=== PATIENT | male | born 1930 | race Caucasian/White ===

== ENCOUNTER 2016-11-25 12:43 | Inpatient (IN) | payer OTHER, MEDICARE ==
[~2016-11-25] VITALS: Ht 177.8 cm; Wt 61.0 kg
[~2016-11-25 12:43] MED LIST: AGGR20025 PO; FURO20 PO; KLOR20TA6 PO; LISI-357 PO; METO25 PO
[2016-11-25 12:45] VITALS: BP 153/70; PULSE 59; RESP 12; TEMP 101.4; O2SAT 88
[2016-11-25 13:06] VITALS: BP 153/70; PULSE 59; RESP 18; TEMP 101.4; O2SAT 94
--- NOTE | 2016-11-25 13:39 | PD ---
HPI Chief Complaint: Fever Time Seen by Provider: 13:34 Travel History International Travel<30 days: No Contact w/Intl Traveler<30days: No Traveled to known affect area: No History of Present Illness HPI 85-year-old male presents to the emergency department for evaluation of cough and congestion since , 5 days ago. His at bedside states that he had a low-grade fever on Thursday, but started to run higher fevers yesterday. He also became weak yesterday and currently complains of generalized weakness. The patient denies any headache. No chest pain. Denies any shortness of breath. No abdominal pain. No nausea or vomiting. Reports intermittent pain from abdominal hernia, but denies any pain at this time. The patient does report a history of pneumonia in the past. According to the , he was seen at the [facility] today was sent to the emergency department for pneumonia and fever. Patient has a PMH of CHF, status post pacemaker placement, hypertension, hyperlipidemia, CAD status post CABG 5 vessels. PFSH Past Medical History Anemia: Yes Blood Disorders: No Heart Rhythm Problems: No Cancer: Yes (HX SKIN) Cardiovascular Problems: Yes (cad) High Cholesterol: Yes Chemotherapy: No Chest Pain: Yes Congestive Heart Failure: Yes Cerebrovascular Accident: Yes Coronary Artery Disease: Yes Diminished Hearing: No (R AND LEFT EAR) Endocrine: No Glaucoma: No Genitourinary: Yes (BPH) Hypertension: Yes Immune Disorder: No Musculoskeletal: No Neurologic: Yes (head injury) Psychiatric: No Reproductive: No Respiratory: Yes (pneumonia) Myocardial Infarction: Yes Radiation Therapy: No Triglycerides - High: Yes Past Surgical History Abdominal Surgery: No AICD: No Arteriovenous Shunt: No Cardiac Surgery: Yes (CABG 5 GRAFTS) Coronary Artery Bypass Graft: Yes (X5 BYPASS 1989 W/STENTS) Ear Surgery: No Endocrine Surgery: No Eye Surgery: No Genitourinary Surgery: Yes (TURP FOR BPH 03/15) Gynecologic Surgery: No Insulin Pump: No Joint Replacement: No Oral Surgery: No Pacemaker: Yes (MARCH 2004) Thoracic Surgery: Yes Other Surgery: Yes Social History Alcohol Use: No Tobacco Use: No Substance Use: No Allergies-Medications (Allergen,Severity, Reaction): Coded Allergies: MRI PRECAUTION (Verified Allergy, Mild, 11/25/16) Plavix (Verified Allergy, Mild, DIARRHEA, 11/25/16) Reported Meds & Prescriptions Reported Meds & Active Scripts Active Reported Aspirin 81 Mg Chew 81 Mg CHEW DAILY Ranitidine (Ranitidine HCl) 150 Mg Tab 150 Mg PO DAILY Metoprolol Tartrate 25 Mg Tab 12.5 Mg PO BID Potassium Chloride ER (Potassium Chloride) 20 Meq Tab 20 Meq PO DAILY Furosemide 20 Mg Tab 20 Mg PO DAILY Review of Systems Except as stated in HPI: all other systems reviewed are Neg Physical Exam Narrative GENERAL: Well-developed well-nourished elderly male patient, fever of 101.4. SKIN: Warm and dry. HEAD: Normocephalic. Atraumatic. EYES: No scleral icterus. No injection or drainage. NECK: Supple, trachea midline. No JVD or lymphadenopathy. CARDIOVASCULAR: Regular rate and rhythm. Systolic murmur noted. RESPIRATORY: Breath sounds equal bilaterally. No accessory muscle use. Lungs sounds are diminished throughout. Cough is noted. GASTROINTESTINAL: Abdomen soft, non-tender, nondistended. MUSCULOSKELETAL: No cyanosis, or edema. BACK: Nontender without obvious deformity. No CVA tenderness. Data Data Last Documented VS Vital Signs Date Time Temp Pulse Resp B/P Pulse Ox O2 Delivery O2 Flow Rate FiO2 11/25/16 16:14 99.2 59 18 138/64 99 Nasal Cannula 2 Orders Electrocardiogram (11/25/16 13:32) Complete Blood Count With Diff (11/25/16 13:32) Lactic Acid Sepsis Protocol (11/25/16 13:32) Influenzae A/B Antigen (11/25/16 13:32) Urinalysis - C+S If Indicated (11/25/16 13:32) Blood Culture (11/25/16 13:32) Chest, Single Ap (11/25/16 13:32) Sodium Chloride 0.9% Flush (Ns Flush) (11/25/16 13:45) Comprehensive Metabolic Panel (11/25/16 13:32) Acetaminophen (Tylenol) (11/25/16 13:45) Troponin I (11/25/16 13:39) Creatine Kinase (Cpk) (11/25/16 13:39) Pneumococcal Urinary Antigen (11/25/16 14:14) Legionella Urinary Antigen (11/25/16 14:14) Ecg Monitoring (11/25/16 14:14) Iv Access Insert/Monitor (11/25/16 14:14) Oximetry (11/25/16 14:14) Oxygen Administration (11/25/16 14:14) B-Type Natriuretic Peptide (11/25/16 14:30) Vancomycin Inj (Vancomycin Inj) (11/25/16 14:27) Cefepime Inj (Maxipime Inj) (11/25/16 14:27) Cath For Specimen (11/25/16 14:51) Diet Heart Healthy (11/25/16 Dinner) Vital Signs (Adult) RHODA.Q4H (11/25/16 16:42) Resp Oxygen Get C Titrat 1-4 L (11/25/16 ) Ceftriaxone Inj (Rocephin Inj) (11/25/16 21:00) Azithromycin Inj (Zithromax Inj) (11/25/16 17:00) Acetaminophen (Tylenol) (11/25/16 16:45) Ondansetron Inj (Zofran Inj) (11/25/16 16:45) Sodium Chlorid 0.9% 500 Ml Inj (Ns 500 M (11/25/16 16:45) Complete Blood Count With Diff (11/26/16 06:00) Basic Metabolic Panel (Bmp) (11/26/16 06:00) Aspirin Chew (Aspirin Chew) (11/26/16 09:00) Metoprolol Tartrate (Lopressor) (11/25/16 21:00) Consult Pt Eval & Treat (11/25/16 16:46) Enoxaparin Inj (Lovenox Inj) (11/26/16 09:00) Pill Splitter (Pill Splitter) (11/25/16 21:00) Albuterol-Ipratropium Neb (Duoneb Neb) (11/25/16 17:15) Famotidine (Pepcid) (11/26/16 09:00) Urinary Catheter Insert/Apply (11/25/16 17:28) Admit Order (Ed Use Only) (11/25/16 18:00) Labs Laboratory Tests Test 11/25/16 11/25/16 13:50 15:30 White Blood Count 5.1 TH/MM3 Red Blood Count 3.83 MIL/MM3 Hemoglobin 12.6 GM/DL Hematocrit 37.4 % Mean Corpuscular Volume 97.5 FL Mean Corpuscular Hemoglobin 32.9 PG Mean Corpuscular Hemoglobin 33.7 % Concent Red Cell Distribution Width 13.9 % Platelet Count 176 TH/MM3 Mean Platelet Volume 9.2 FL Neutrophils (%) (Auto) 75.7 % Lymphocytes (%) (Auto) 10.2 % Monocytes (%) (Auto) 13.2 % Eosinophils (%) (Auto) 0.3 % Basophils (%) (Auto) 0.6 % Neutrophils # (Auto) 3.8 TH/MM3 Lymphocytes # (Auto) 0.5 TH/MM3 Monocytes # (Auto) 0.7 TH/MM3 Eosinophils # (Auto) 0.0 TH/MM3 Basophils # (Auto) 0.0 TH/MM3 CBC Comment AUTO DIFF Differential Comment AUTO DIFF CONFIRMED Platelet Estimate NORMAL Platelet Morphology Comment NORMAL Ovalocytes 1+ Sodium Level 134 MEQ/L Potassium Level 5.3 MEQ/L Chloride Level 100 MEQ/L Carbon Dioxide Level 26.7 MEQ/L Anion Gap 7 MEQ/L Blood Urea Nitrogen 23 MG/DL Creatinine 1.50 MG/DL Estimat Glomerular Filtration 44 ML/MIN Rate Random Glucose 107 MG/DL Lactic Acid Level 1.6 mmol/L Calcium Level 9.1 MG/DL Total Bilirubin 0.7 MG/DL Aspartate Amino Transf 51 U/L (AST/SGOT) Alanine Aminotransferase 17 U/L (ALT/SGPT) Alkaline Phosphatase 103 U/L Total Protein 8.9 GM/DL Albumin 3.6 GM/DL Urine Color YELLOW Urine Turbidity CLEAR Urine pH 5.5 Urine Specific [place] 1.018 Urine Protein TRACE mg/dL Urine Glucose (UA) NEG mg/dL Urine Ketones NEG mg/dL Urine Occult Blood NEG Urine Nitrite NEG Urine Bilirubin NEG Urine Urobilinogen LESS THAN 2.0 MG/DL Urine Leukocyte Esterase NEG Urine RBC LESS THAN 1 /hpf Urine WBC 1 /hpf Urine Squamous Epithelial <1 /hpf Cells Urine Hyaline Casts 1 /lpf Urine Mucus FEW /lpf Microscopic Urinalysis Comment CULT NOT INDICATED B-Type Natriuretic Peptide 823 PG/ML MDM Medical Decision Making Medical Screen Exam Complete: Yes Emergency Medical Condition: Yes Medical Record Reviewed: Yes Differential Diagnosis Pneumonia versus sepsis versus UTI versus influenza Narrative Course 85-year-old male presents to the emergency department for evaluation of fever, cough, congestion, generalized weakness that has been worsening since . Patient is noted to be febrile to temperature of 101.4. His oxygen saturation initially in triage was 88% on room air. Patient is placed in triage room and is placed on 3 L O2 nasal cannula. CBC, CMP, CK, troponin, lactic acid, blood cultures 2 are ordered and pending. EKG is ordered and pending. Chest x-ray is ordered and pending. Workup is initiated in triage. Once a medical bed becomes available, patient will be transferred and care assumed by that provider. Velma Mata Nov 25, 2016 13:39
[2016-11-25] MEDS ORDERED: ACETAMINOPHEN 325 MG TAB PO ONE (13:45)
[2016-11-25 14:21] LABS: AUTOMATED NEUTROPHIL # 3.8 TH/MM3 (1.8-7.7); BASOPHIL % 0.6 % (0.0-2.0); EOSINOPHIL % 0.3 % (0.0-4.0); HEMATOCRIT 37.4 % (39.0-51.0); LYMPH % 10.2 % (9.0-44.0); LYMPHOCYTE # 0.5 TH/MM3 (1.0-4.8); MEAN CELL VOLUME 97.5 FL (80.0-100.0); MEAN CORPUSCULAR HEMOGLOBIN 32.9 PG (27.0-34.0); MEAN CORPUSCULAR HGB CONC 33.7 % (32.0-36.0); MONO % 13.2 % (0.0-8.0); NEUT % 75.7 % (16.0-70.0); PLATELET COUNT 176 TH/MM3 (150-450); RED BLOOD COUNT 3.83 MIL/MM3 (4.50-5.90); RED CELL DISTRIBUTION WIDTH 13.9 % (11.6-17.2); WHITE BLOOD COUNT 5.1 TH/MM3 (4.0-11.0)
--- NOTE | 2016-11-25 14:24 | RADRPT ---
EXAM DATE/TIME: 11/25/2016 13:54 [facility] COMPARISON: CHEST SINGLE AP, November 23, 2014, 6:21. INDICATIONS : Fever, short of breath MEDICAL HISTORY : Cardiovascular disease. SURGICAL HISTORY : Pacemaker. ENCOUNTER: Initial ACUITY: 1 day PAIN SCORE: 0/10 LOCATION: Bilateral chest FINDINGS: A single AP portable erect view of the chest was obtained and demonstrates the patient is status post median sternotomy. A left subclavian AV sequential transvenous pacer remains in place. There are no confluent infiltrates or effusions. The heart size remains mildly enlarged. The bony thorax is otherw ise unremarkable. CONCLUSION: Re: megaly with no acute cardiac pulmonary disease. There is no evidence of pneumonia . Jaden Aguayo MD on November 25, 2016 at 14:07 Board Certified Radiologist. This report was verified electronically.
[2016-11-25] MEDS ORDERED: VANCOMYCIN INJ 1,000 MG in SODIUM CHLOR 0.9% 250 ML INJ 250 ML IV STA (14:27)
[2016-11-25] MEDS ORDERED: CEFEPIME INJ 2,000 MG in SODIUM CHLORIDE 0.9% INJ 100 ML IV STA (14:27)
[2016-11-25 14:30] LABS: HEMO FLAGS AUTO DIFF
[2016-11-25] MEDS ORDERED: ASPI81CH CHEW (14:38)
[2016-11-25] MEDS ORDERED: FURO20TA PO (14:38)
[2016-11-25] MEDS ORDERED: POTA-163 PO (14:38)
[2016-11-25] MEDS ORDERED: METO25TA3 PO (14:38)
[2016-11-25] MEDS ORDERED: RANI150T PO (14:38)
--- NOTE | 2016-11-25 14:39 | PD ---
HPI Chief Complaint: Fever Time Seen by Provider: 14:32 Travel History International Travel<30 days: No Contact w/Intl Traveler<30days: No Traveled to known affect area: No History of Present Illness HPI Patient is an 85-year-old male who was sent by the MD to the emergency department for evaluation of fevers and possible pneumonia. Per 's report patient started to feel bad on of last week. She states that he had been sleeping more. Patient denies any nausea, vomiting, diarrhea. states this morning he was weak to the point where he needed help changing positions and ambulating. states that the thermometer wasn't working so she is unsure if he had a fever at home. Patient is currently denying any complaints stating that he "feels good". Patient's past medical history includes hypertension, congestive for failure, hyperlipidemia, CVA, CAD. Patient has had a pacemaker placed, 5 vessel CABG, and cardiac stents. PFSH Past Medical History Anemia: Yes Blood Disorders: No Heart Rhythm Problems: No Cancer: Yes (HX SKIN) High Cholesterol: Yes Chemotherapy: No Chest Pain: Yes Congestive Heart Failure: Yes Cerebrovascular Accident: Yes Coronary Artery Disease: Yes Diminished Hearing: No (R AND LEFT EAR) Endocrine: No Glaucoma: No Genitourinary: Yes (BPH) Hiatal Hernia: Yes Hypertension: Yes Immune Disorder: No Musculoskeletal: No Neurologic: Yes (head injury) Psychiatric: No Reproductive: No Respiratory: Yes (pneumonia) Myocardial Infarction: Yes Radiation Therapy: No Triglycerides - High: Yes Past Surgical History Abdominal Surgery: No AICD: No Arteriovenous Shunt: No Coronary Artery Bypass Graft: Yes (X5 BYPASS 1989 W/STENTS) Ear Surgery: No Endocrine Surgery: No Eye Surgery: No Genitourinary Surgery: Yes (TURP FOR BPH 03/15) Gynecologic Surgery: No Insulin Pump: No Joint Replacement: No Oral Surgery: No Pacemaker: Yes (MARCH 2004) Other Surgery: Yes Social History Alcohol Use: No Tobacco Use: No Substance Use: No Allergies-Medications (Allergen,Severity, Reaction): Coded Allergies: MRI PRECAUTION (Verified Allergy, Mild, 11/25/16) Plavix (Verified Allergy, Mild, DIARRHEA, 11/25/16) Reported Meds & Prescriptions Reported Meds & Active Scripts Active Reported Aspirin 81 Mg Chew 81 Mg CHEW DAILY Ranitidine (Ranitidine HCl) 150 Mg Tab 150 Mg PO DAILY Metoprolol Tartrate 25 Mg Tab 12.5 Mg PO BID Potassium Chloride ER (Potassium Chloride) 20 Meq Tab 20 Meq PO DAILY Furosemide 20 Mg Tab 20 Mg PO DAILY Review of Systems Except as stated in HPI: all other systems reviewed are Neg General / Constitutional: Positive: Fever, Chills HENT: No: Headaches Cardiovascular: No: Chest Pain or Discomfort Respiratory: Positive: Shortness of Breath Gastrointestinal: No: Nausea, Vomiting, Abdominal Pain Musculoskeletal: No: Myalgias Neurologic: Positive: Weakness, No: Focal Abnormalities, Change in Mentation Physical Exam Narrative GENERAL: Thin, well-developed, alert elderly male. Resting comfortably in no acute distress. Patient is hard of hearing. SKIN: Warm and dry. HEAD: Atraumatic. Normocephalic. EYES: Pupils equal and round. No scleral icterus. No injection or drainage. ENT: No nasal bleeding or discharge. Mucous membranes pink and moist. NECK: Trachea midline. No JVD. CARDIOVASCULAR: Regular rate and rhythm. 2/6 systolic murmur noted, no peripheral edema noted. RESPIRATORY: No accessory muscle use. Expiratory wheezing noted in left lower lobe. No increased work of breathing noted. GASTROINTESTINAL: Abdomen soft, non-tender, nondistended. Hepatic and splenic margins not palpable. MUSCULOSKELETAL: No obvious deformities. No clubbing. No cyanosis. No edema. NEUROLOGICAL: Awake and alert. No obvious cranial nerve deficits. Motor grossly within normal limits. Normal speech. PSYCHIATRIC: Appropriate mood and affect; insight and judgment normal. Data Data Last Documented VS Vital Signs Date Time Temp Pulse Resp B/P Pulse Ox O2 Delivery O2 Flow Rate FiO2 11/25/16 14:30 98 Nasal Cannula 2 11/25/16 13:06 101.4 59 18 153/70 Orders Electrocardiogram (11/25/16 13:32) Complete Blood Count With Diff (11/25/16 13:32) Lactic Acid Sepsis Protocol (11/25/16 13:32) Influenzae A/B Antigen (11/25/16 13:32) Urinalysis - C+S If Indicated (11/25/16 13:32) Blood Culture (11/25/16 13:32) Chest, Single Ap (11/25/16 13:32) Sodium Chloride 0.9% Flush (Ns Flush) (11/25/16 13:45) Comprehensive Metabolic Panel (11/25/16 13:32) Acetaminophen (Tylenol) (11/25/16 13:45) Troponin I (11/25/16 13:39) Creatine Kinase (Cpk) (11/25/16 13:39) Pneumococcal Urinary Antigen (11/25/16 14:14) Legionella Urinary Antigen (11/25/16 14:14) Ecg Monitoring (11/25/16 14:14) Iv Access Insert/Monitor (11/25/16 14:14) Oximetry (11/25/16 14:14) Oxygen Administration (11/25/16 14:14) B-Type Natriuretic Peptide (11/25/16 14:30) Vancomycin Inj (Vancomycin Inj) (11/25/16 14:27) Cefepime Inj (Maxipime Inj) (11/25/16 14:27) Cath For Specimen (11/25/16 14:51) Labs Laboratory Tests Test 11/25/16 11/25/16 13:50 15:30 White Blood Count 5.1 TH/MM3 Red Blood Count 3.83 MIL/MM3 Hemoglobin 12.6 GM/DL Hematocrit 37.4 % Mean Corpuscular Volume 97.5 FL Mean Corpuscular Hemoglobin 32.9 PG Mean Corpuscular Hemoglobin 33.7 % Concent Red Cell Distribution Width 13.9 % Platelet Count 176 TH/MM3 Mean Platelet Volume 9.2 FL Neutrophils (%) (Auto) 75.7 % Lymphocytes (%) (Auto) 10.2 % Monocytes (%) (Auto) 13.2 % Eosinophils (%) (Auto) 0.3 % Basophils (%) (Auto) 0.6 % Neutrophils # (Auto) 3.8 TH/MM3 Lymphocytes # (Auto) 0.5 TH/MM3 Monocytes # (Auto) 0.7 TH/MM3 Eosinophils # (Auto) 0.0 TH/MM3 Basophils # (Auto) 0.0 TH/MM3 CBC Comment AUTO DIFF Differential Comment AUTO DIFF CONFIRMED Platelet Estimate NORMAL Platelet Morphology Comment NORMAL Ovalocytes 1+ Sodium Level 134 MEQ/L Potassium Level 5.3 MEQ/L Chloride Level 100 MEQ/L Carbon Dioxide Level 26.7 MEQ/L Anion Gap 7 MEQ/L Blood Urea Nitrogen 23 MG/DL Creatinine 1.50 MG/DL Estimat Glomerular Filtration 44 ML/MIN Rate Random Glucose 107 MG/DL Lactic Acid Level 1.6 mmol/L Calcium Level 9.1 MG/DL Total Bilirubin 0.7 MG/DL Aspartate Amino Transf 51 U/L (AST/SGOT) Alanine Aminotransferase 17 U/L (ALT/SGPT) Alkaline Phosphatase 103 U/L Total Protein 8.9 GM/DL Albumin 3.6 GM/DL Urine Color YELLOW Urine Turbidity CLEAR Urine pH 5.5 Urine Specific [place] 1.018 Urine Protein TRACE mg/dL Urine Glucose (UA) NEG mg/dL Urine Ketones NEG mg/dL Urine Occult Blood NEG Urine Nitrite NEG Urine Bilirubin NEG Urine Urobilinogen LESS THAN 2.0 MG/DL Urine Leukocyte Esterase NEG Urine RBC LESS THAN 1 /hpf Urine WBC 1 /hpf Urine Squamous Epithelial <1 /hpf Cells Urine Hyaline Casts 1 /lpf Urine Mucus FEW /lpf Microscopic Urinalysis Comment CULT NOT INDICATED MDM Medical Decision Making Medical Screen Exam Complete: Yes Emergency Medical Condition: Yes Medical Record Reviewed: Yes Interpretation(s) Vital Signs Date Time Temp Pulse Resp B/P Pulse Ox O2 Delivery O2 Flow Rate FiO2 11/25/16 14:30 98 Nasal Cannula 2 11/25/16 13:06 101.4 59 18 153/70 94 11/25/16 12:45 101.4 59 12 153/70 88 Room Air Differential Diagnosis Sepsis versus pneumonia versus viral syndrome versus UTI versus other Narrative Course Patient is an 85-year-old male presenting to the emergency department evaluation fevers and possible pneumonia after being evaluated at the MD clinic. Patient is febrile on arrival with a temp of 101.4. Heart rate is regular 59, blood pressure stable at 159/70. Labs and imaging ordered and pending, acetaminophen given for fever. Blood cultures, urine for Legionella and pneumococcal antigens, urinalysis ordered. Patient will be started on empiric antibiotics. Urinalysis is not indicative of a urinary tract infection Chemistry with elevated BUN and creatinine, elevated potassium at 5.3, lactic acid is normal. CBC slight left shift, no elevated white count at this time. Chest x-ray no acute cardiopulmonary disease, no evidence of pneumonia. Influenza is negative Likely early pneumonia, on exam patient had wheezing and coarse breath sounds in the left lower lobe. However no clear source has been identified for the fever. Patient will be admitted for empiric IV antibiotics. Patient are agreeable to plan. Discussed with my attending physician as well as Dr. Churchill who accepted admission. Sepsis Criteria SIRS Criteria (2 or more): Temp > 100.9 or < 96.8 Diagnosis Primary Impression: Pneumonia Qualified Code: J18.9 - Pneumonia due to infectious organism, unspecified laterality, unspecified part of lung Additional Impressions: Fever Qualified Code: R50.9 - Fever, unspecified fever cause Hypoxia Acute renal insufficiency Admitting Information Admitting Physician Requests: Admit Condition: Stable Linda Walker Nov 25, 2016 14:39
[2016-11-25 14:40] LABS: ALKALINE PHOSPHATASE 103 U/L (45-117); TOTAL BILIRUBIN ADULT 0.7 MG/DL (0.2-1.0)
[2016-11-25 14:47] LABS: ALT (GPT) 17 U/L (12-78); ANION GAP 7 MEQ/L (5-15); AST (GOT) 51 U/L (15-37); BICARBONATE 26.7 MEQ/L (21.0-32.0); BLOOD UREA NITROGEN 23 MG/DL (7-18); CHLORIDE 100 MEQ/L (98-107); GLOMERULAR FILTRATION RATE 44 ML/MIN (>89); SODIUM (NA) 134 MEQ/L (136-145)
[2016-11-25 14:49] LABS: POTASSIUM 5.3 MEQ/L (3.5-5.1)
[2016-11-25 14:53] LABS: OVALOCYTES 1+ (NORMAL); PLATELET ESTIMATE SMEAR NORMAL (NORMAL); PLATELET MORPHOLOGY NORMAL (NORMAL); SCAN/DIFF AUTO DIFF CONFIRMED
[2016-11-25 15:56] LABS: BLOOD, URINE NEG (NEG); COMMENT (UR) CULT NOT INDICATED; CULTURE IF INDICATED CULT NOT INDICATED; GLUCOSE,URINE NEG (NEG); HYALINE CAST, URINE 1 /lpf (RARE); KETONE, URINE NEG (NEG); MUCUS URINE FEW /lpf (OCC); NITRITE,URINE NEG (NEG); PH, URINE 5.5 (5.0-8.5); SQUAMOUS EPITHELIAL CELL URINE <1 /hpf (0-5); URINE COLOR YELLOW (YELLW/STRAW)
[2016-11-25 16:14] VITALS: BP 138/64; PULSE 59; RESP 18; TEMP 99.2; O2SAT 99
[2016-11-25] MEDS ORDERED: SODIUM CHLORID 0.9% 500 ML INJ 500 ML IV ONE (16:45)
[2016-11-25] MEDS ORDERED: ACETAMINOPHEN 325 MG TAB PO PRN (16:45)
[2016-11-25] MEDS ORDERED: ONDANSETRON HCL 4 MG/2 ML VIAL IV PUSH PRN (16:45)
--- NOTE | 2016-11-25 16:53 | HHI.HP ---
[facility] Service [facility] Primary Care Physician [facility] Admission Diagnosis pneumonia Diagnoses: (1) Pneumonia Diagnosis: Principal (2) Hypoxia Diagnosis: Principal Chief Complaint: cough Travel History International Travel<30 Days: No Contact w/Intl Traveler <30 Da: No Traveled to Known Affected Are: No History of Present Illness patient is a 85 y/o male with history of CAD- s/p CABG, hypertension presented to ER with cough. he says that he's been coughing for the past few days. the cough is productive and associated with fever. he denies any sob, chills or night sweats. he was seen by MA earlier today and was advised to come to the hospital for further evaluation. he denies any chest pain, abdominal pain, nausea or vomiting. Review of Systems Constitutional: COMPLAINS OF: Fever, DENIES: Weight loss, Chills, Night Sweats Eyes: DENIES: Blurred vision, Diplopia, Vision loss, Double Vision Ears, nose, mouth, throat: DENIES: Tinnitus, Vertigo, Throat pain, Epistaxis Respiratory: COMPLAINS OF: Cough, Sputum production, DENIES: Apneas, Snoring, Wheezing, Hemoptysis, Shortness of breath Cardiovascular: DENIES: Chest pain, Palpitations, Syncope, Dyspnea on Exertion , PND, Lower Extremity Edema, Orthopnea, Claudication Gastrointestinal: DENIES: Abdominal pain, Black stools, Bloody stools, Constipation, Diarrhea, Nausea, Vomiting, Difficulty Swallowing, Anorexia Genitourinary: DENIES: Urinary frequency, Urgency, Hematuria, Dysuria Musculoskeletal: DENIES: Joint pain, Muscle aches, Stiffness, Joint Swelling Integumentary: DENIES: Rash Neurologic: DENIES: Abnormal gait, Headache, Localized weakness, Paresthesias, Seizures, Speech Problems, Tremor, Poor Balance Psychiatric: DENIES: Anxiety, Confusion, Mood changes, Depression, Hallucinations, Agitation, Suicidal Ideation, Homicidal Ideation, Delusions Past Family Social History Past Medical History CAD hypertension Past Surgical History CABG/ pacemaker insertion Reported Medications Lisinopril 5 mg (Lisinopril) 5 Mg Tab 1 Tab PO DAILY 30 Days Metoprolol Tartrate 25 mg (Metoprolol Tartrate) 25 Mg Tab 12.5 Mg PO Q12 30 Days Lasix 20 Mg Tab (Furosemide) 20 Mg Tab 20 Mg PO DAILY 30 Days K-Dur (Potassium Chloride) 20 Meq Tabcr 20 Meq PO DAILY 30 Days Aggrenox (Dipyridamole/Aspirin) 25 Mg/200 Mg Cap 1 Cap PO BID Allergies: Coded Allergies: MRI PRECAUTION (Verified Allergy, Mild, 11/25/16) Plavix (Verified Allergy, Mild, DIARRHEA, 11/25/16) Active Ordered Medications Current Medications IV Flush (NS Flush) 2 ml UNSCH PRN IVF FLUSH AFTER USING IV ACCESS; Start 11/25 at 13:45 Acetaminophen 650 mg 650 mg ONCE ONCE PO Last administered on 11/25/16 15:06 ; Start 11/25/16 at 13:45; Stop 11/25/16 at 13:46; Status DC Vancomycin HCl 1000 mg/Sodium Chloride 250 ml @ 250 mls/hr ONCE STAT IV Last administered on 11/25/16 15:38; Start 11/25/16 at 14:27; Stop 11/25/16 at 15:26 ; Status DC Cefepime HCl/ Sodium Chloride (Maxipime Inj/NS Inj) 100 ml @ 200 mls/hr ONCE STAT IV ; Start 11/25/16 at 14:27; Stop 11/25/16 at 14:56; Status DC Social History no smoking or drinking. Physical Exam Vital Signs Vital Signs Date Time Temp Pulse Resp B/P Pulse Ox O2 Delivery O2 Flow Rate FiO2 11/25/16 16:14 99.2 59 18 138/64 99 Nasal Cannula 2 11/25/16 14:30 98 Nasal Cannula 2 11/25/16 13:06 101.4 59 18 153/70 94 11/25/16 12:45 101.4 59 12 153/70 88 Room Air Physical Exam GENERAL: This is a well-nourished, well-developed patient, in no apparent distress. SKIN: No rashes, ecchymoses or lesions. Cool and dry. HEAD: Atraumatic. Normocephalic. No temporal or scalp tenderness. EYES: Pupils equal round and reactive. Extraocular motions intact. No scleral icterus. No injection or drainage. ENT: Nose without bleeding, purulent drainage or septal hematoma. Throat without erythema, tonsillar hypertrophy or exudate. Uvula midline. Airway patent. NECK: Trachea midline. No JVD or lymphadenopathy. Supple, nontender, no meningeal signs. CARDIOVASCULAR: Regular rate and rhythm without murmurs, gallops, or rubs. RESPIRATORY: mild basal wheezing GASTROINTESTINAL: Abdomen soft, non-tender, nondistended. No hepato-splenomegaly , or palpable masses. No guarding. MUSCULOSKELETAL: Extremities without clubbing, cyanosis, or edema. No joint tenderness, effusion, or edema noted. No calf tenderness. Negative Homans sign bilaterally. NEUROLOGICAL: Awake and alert. Cranial nerves II through XII intact. Motor and sensory grossly within normal limits. Five out of 5 muscle strength in all muscle groups. Normal speech. Laboratory Laboratory Tests Test 11/25/16 11/25/16 13:50 15:30 White Blood Count 5.1 Red Blood Count 3.83 Hemoglobin 12.6 Hematocrit 37.4 Mean Corpuscular Volume 97.5 Mean Corpuscular Hemoglobin 32.9 Mean Corpuscular Hemoglobin 33.7 Concent Red Cell Distribution Width 13.9 Platelet Count 176 Mean Platelet Volume 9.2 Neutrophils (%) (Auto) 75.7 Lymphocytes (%) (Auto) 10.2 Monocytes (%) (Auto) 13.2 Eosinophils (%) (Auto) 0.3 Basophils (%) (Auto) 0.6 Neutrophils # (Auto) 3.8 Lymphocytes # (Auto) 0.5 Monocytes # (Auto) 0.7 Eosinophils # (Auto) 0.0 Basophils # (Auto) 0.0 CBC Comment AUTO DIFF Differential Comment AUTO DIFF CONFIRMED Platelet Estimate NORMAL Platelet Morphology Comment NORMAL Ovalocytes 1+ Sodium Level 134 Potassium Level 5.3 Chloride Level 100 Carbon Dioxide Level 26.7 Anion Gap 7 Blood Urea Nitrogen 23 Creatinine 1.50 Estimat Glomerular Filtration 44 Rate Random Glucose 107 Lactic Acid Level 1.6 Calcium Level 9.1 Total Bilirubin 0.7 Aspartate Amino Transf 51 (AST/SGOT) Alanine Aminotransferase 17 (ALT/SGPT) Alkaline Phosphatase 103 Total Protein 8.9 Albumin 3.6 Urine Color YELLOW Urine Turbidity CLEAR Urine pH 5.5 Urine Specific Dudley 1.018 Urine Protein TRACE Urine Glucose (UA) NEG Urine Ketones NEG Urine Occult Blood NEG Urine Nitrite NEG Urine Bilirubin NEG Urine Urobilinogen LESS THAN 2.0 Urine Leukocyte Esterase NEG Urine RBC LESS THAN 1 Urine WBC 1 Urine Squamous Epithelial <1 Cells Urine Hyaline Casts 1 Urine Mucus FEW Microscopic Urinalysis Comment CULT NOT INDICATED B-Type Natriuretic Peptide 823 Date/Time Procedure Status Source Growth 11/25/16 15:30 Legionella Antigen Received Urine Clean Catch Pending 11/25/16 15:30 Streptococcus pneumoniae Antigen (M Received Urine Clean Catch Pending 11/25/16 14:05 Influenza Types A,B Antigen (KAREN) - Final Complete Nasal Washing NEGATIVE FOR FLU A AND B ANTIGEN.... 11/25/16 13:55 Aerobic Blood Culture Received Blood Peripheral Pending 11/25/16 13:55 Anaerobic Blood Culture Received Blood Peripheral Pending Result Diagram: 11/25/16 1350 11/25/16 1350 Imaging Last Impressions Chest X-Ray 11/25/16 1332 Signed Impressions: Service Date/Time: Friday, November 25, 2016 13:54 - CONCLUSION: Re: megaly with no acute cardiac pulmonary disease. There is no evidence of pneumonia. Jaden Aguayo MD Assessment and Plan Assessment and Plan A/P - acute hypoxemic respiratory failure due to pneumonia continue with IV antibiotics- antipyretics and neb treatment as needed. follow the cultures. -renal insufficiency with unknown duration and mild hyperkalemia; hold lasix and potassium- gentle IV hydration- repeat BMP in am -CAD/ s/p CABG and pacemaker placement/ hypertension; resume home meds -DVT prophylaxis with lovenox -consult PT Discussed Condition With ER physician , the patient and family. Physician Certification 2 Midnight Certification Type: Admission for Inpatient Services Order for Inpatient Services The services are ordered in accordance with Medicare regulations or non- Medicare payer requirements, as applicable. In the case of services not specified as inpatient-only, they are appropriately provided as inpatient services in accordance with the 2-midnight benchmark. Estimated LOS (days): 2 days is the estimated time the patient will need to remain in the hospital, assuming treatment plan goals are met and no additional complications. Post-Hospital Plan: Not yet determined Problem Qualifiers (1) Pneumonia: Qualified Code: J18.9 - Pneumonia due to infectious organism, unspecified laterality, unspecified part of lung Ivonne Lock MD Nov 25, 2016 16:53
[2016-11-25] MEDS ORDERED: RESP: ALBUTEROL 2.5 MG/IPRATROPIUM 0.5 MG NEB (PRN) NEB (17:15)
[2016-11-25] MEDS: AZITHROMYCIN INJ 500 MG in SODIUM CHLOR 0.9% 250 ML INJ 250 ML IV SCH (17:41)
[2016-11-25 18:05] VITALS: BP 151/73; PULSE 60; RESP 20; O2SAT 99
[2016-11-25 19:20] VITALS: BP 152/63; PULSE 60; RESP 20; TEMP 98.4; O2SAT 98
[2016-11-25] MEDS ORDERED: PILL SPLITTER OTHER PRN (21:00)
[2016-11-25] MEDS: cefTRIAXone INJ 1,000 MG in SODIUM CHLORIDE 0.9% INJ 100 ML IV SCH (21:56)
[2016-11-25] MEDS: METOPROLOL TARTRATE 25 MG TAB PO SCH (21:59)
[2016-11-25 22:18] VITALS: BP 125/66; PULSE 63; RESP 21; O2SAT 95
[2016-11-25 23:53] LABS: CREATINE KINASE 161 U/L (39-308)
[2016-11-26] VITALS (10 sets, daily range): BP systolic 103–154; BP diastolic 52–72; PULSE 59–61; RESP 18–21; TEMP 98–99.4; O2SAT 94–99
[2016-11-26 07:01] LABS: AUTOMATED NEUTROPHIL # 2.7 TH/MM3 (1.8-7.7); BASOPHIL % 0.4 % (0.0-2.0); EOSINOPHIL % 0.1 % (0.0-4.0); HEMATOCRIT 31.4 % (39.0-51.0); HEMO FLAGS DIFF FINAL; LYMPH % 20.5 % (9.0-44.0); LYMPHOCYTE # 0.9 TH/MM3 (1.0-4.8); MEAN CELL VOLUME 97.6 FL (80.0-100.0); MEAN CORPUSCULAR HEMOGLOBIN 32.6 PG (27.0-34.0); MEAN CORPUSCULAR HGB CONC 33.4 % (32.0-36.0); MONO % 17.9 % (0.0-8.0); NEUT % 61.1 % (16.0-70.0); PLATELET COUNT 102 TH/MM3 (150-450); RED BLOOD COUNT 3.22 MIL/MM3 (4.50-5.90); RED CELL DISTRIBUTION WIDTH 13.5 % (11.6-17.2); WHITE BLOOD COUNT 4.4 TH/MM3 (4.0-11.0)
[2016-11-26 07:18] LABS: BICARBONATE 28.7 MEQ/L (21.0-32.0); POTASSIUM 4.2 MEQ/L (3.5-5.1)
--- NOTE | 2016-11-26 08:20 | HHI.PR ---
Subjective Remarks f/u; pneumonia looks and feels much better today. no fever today. still with some occasional cough. Objective Vitals Vital Signs Date Time Temp Pulse Resp B/P Pulse Ox O2 Delivery O2 Flow Rate FiO2 11/26/16 08:06 98.2 60 20 113/58 95 11/26/16 05:36 99.4 59 18 119/55 94 11/26/16 04:12 99 2.00 11/26/16 01:03 98.4 60 18 142/64 97 11/26/16 00:01 60 21 154/72 96 Nasal Cannula 2 11/25/16 22:18 63 21 125/66 95 Nasal Cannula 2 11/25/16 19:23 60 20 98 Nasal Cannula 3 11/25/16 19:20 98.4 60 20 152/63 98 Nasal Cannula 2 11/25/16 18:05 60 20 151/73 99 Nasal Cannula 2 11/25/16 16:14 99.2 59 18 138/64 99 Nasal Cannula 2 11/25/16 14:30 98 Nasal Cannula 2 11/25/16 13:06 101.4 59 18 153/70 94 11/25/16 12:45 101.4 59 12 153/70 88 Room Air I/O 11/25/16 11/25/16 11/25/16 11/26/16 11/26/16 11/26/16 07:00 15:00 23:00 07:00 15:00 23:00 Intake Total 200 ml Output Total 625 ml Balance 200 ml -625 ml Intake Oral 200 ml Output Urine Total 625 ml # Bowel Movements 1 Result Diagram: 11/26/16 0612 11/26/16 0612 Imaging Last Impressions Chest X-Ray 11/25/16 1332 Signed Impressions: Service Date/Time: Friday, November 25, 2016 13:54 - CONCLUSION: Re: megaly with no acute cardiac pulmonary disease. There is no evidence of pneumonia. Jaden Aguayo MD Objective Remarks GENERAL: This is a well-nourished, well-developed patient, in no apparent distress. CARDIOVASCULAR: Regular rate and regular rhythm without murmurs, gallops, or rubs. RESPIRATORY: Clear to auscultation. Breath sounds equal bilaterally. No wheezes , rales, or rhonchi. GASTROINTESTINAL: Abdomen soft, non-tender, nondistended. Normal, active bowel sounds MUSCULOSKELETAL: Extremities without clubbing, cyanosis, or edema. NEURO: Alert & Oriented x4 to person, place, time, situation. Moves all ext x4 Procedures none Medications and IVs Current Medications IV Flush (NS Flush) 2 ml UNSCH PRN IVF FLUSH AFTER USING IV ACCESS; Start 11/25 at 13:45 Acetaminophen 650 mg 650 mg ONCE ONCE PO Last administered on 11/25/16 15:06 ; Start 11/25/16 at 13:45; Stop 11/25/16 at 13:46; Status DC Vancomycin HCl 1000 mg/Sodium Chloride 250 ml @ 250 mls/hr ONCE STAT IV Last administered on 11/25/16 15:38; Start 11/25/16 at 14:27; Stop 11/25/16 at 15:26 ; Status DC Cefepime HCl 2000 mg/Sodium Chloride 100 ml @ 200 mls/hr ONCE STAT IV Last administered on 11/25/16 16:50; Start 11/25/16 at 14:27; Stop 11/25/16 at 14:56 ; Status DC Ceftriaxone Sodium 1000 mg/ Sodium Chloride 100 ml @ 200 mls/hr Q24H IV Last administered on 11/25/16 21:56; Start 11/25/16 at 21:00 Azithromycin/ Sodium Chloride (Zithromax Inj/ NS 250 ml Inj) 250 ml @ 250 mls/ hr Q24H IV Last administered on 11/25/16 17:41; Start 11/25/16 at 17:00 Albuterol/ Ipratropium (Duoneb Neb) 1 ampule Q6HR NEB PRN NEB SHORTNESS OF BREATH; Start 11/25/16 at 17:15 Acetaminophen (Tylenol) 650 mg Q4H PRN PO FEVER/PAIN 1-10; Start 11/25/16 at 16 :45 Ondansetron HCl 4 mg 4 mg Q8HR PRN IV PUSH NAUSEA; Start 11/25/16 at 16:45 Sodium Chloride (NS 500 ml Inj) 500 ml @ 50 mls/hr Q10H ONCE IV Last administered on 11/25/16 17:41; Start 11/25/16 at 16:45; Stop 11/26/16 at 02:44 ; Status DC Aspirin (Aspirin Chew) 81 mg DAILY CHEW ; Start 11/26/16 at 09:00 Metoprolol Tartrate (Lopressor) 12.5 mg BID PO Last administered on 11/25/16t 21:59; Start 11/25/16 at 21:00 Famotidine (Pepcid) 10 mg BID PO ; Start 11/26/16 at 09:00 Enoxaparin Sodium (Lovenox Inj) 30 mg Q24H SQ ; Start 11/26/16 at 09:00 Miscellaneous (Pill Splitter) 1 ea UNSCH PRN OTHER SEE LABEL COMMENTS; Start at 21:00 A/P Assessment and Plan A/P - acute hypoxemic respiratory failure due to pneumonia continue with IV antibiotics- antipyretics and neb treatment as needed. follow the cultures. walk test before discharge. -acute kidney injury with mild hyperkalemia; improved.lasix/ potassium on hold. -CAD/ s/p CABG and pacemaker placement/ hypertension; resumed home meds -DVT prophylaxis with lovenox -consulted PT Discharge Planning discharge planning in am if stable and fever-free- pending PT evaluation. Ivonne Lock MD Nov 26, 2016 08:20
[2016-11-26] MEDS: METOPROLOL TARTRATE 25 MG TAB PO SCH ×2 (09:06→21:22)
[2016-11-26] MEDS: FAMOTIDINE 20 MG TAB PO SCH ×2 (09:07→21:23)
[2016-11-26] MEDS: SODIUM CHLORIDE 0.9% FLUSH 5 ML FLUSH IVF PRN ×2 (09:08→16:47)
[2016-11-26] MEDS: ASPIRIN 81 MG CHEW TAB CHEW SCH (09:16)
[2016-11-26] MEDS: ENOXAPARIN SODIUM 30 MG/0.3 ML SYRINGE SQ SCH (09:16)
[2016-11-26] MEDS: AZITHROMYCIN INJ 500 MG in SODIUM CHLOR 0.9% 250 ML INJ 250 ML IV SCH (16:45)
[2016-11-26] MEDS: cefTRIAXone INJ 1,000 MG in SODIUM CHLORIDE 0.9% INJ 100 ML IV SCH (21:23)
--- NOTE | 2016-11-26 23:06 | EKG ---
Date Performed: 11/25/2016 Time Performed: 14:41:03 PTAGE: 85 years EKG: ELECTRONIC VENTRICULAR PACEMAKER ABNORMAL RHYTHM ECG PREVIOUS TRACING : 11/23/2014 03.51 DOCTOR: Owen Newman Interpretating Date/Time 11/26/2016 22:59:54
[2016-11-27 04:38] VITALS: BP 128/65; PULSE 67; RESP 18; TEMP 98.7; O2SAT 97
[2016-11-27 06:20] VITALS: O2SAT 97
[2016-11-27 07:26] VITALS: BP 148/67; PULSE 60; RESP 17; TEMP 98.1; O2SAT 100
--- NOTE | 2016-11-27 08:54 | HHI.PR ---
Subjective Remarks resting comfortably with no distress. no sob or pain. afebrile. no new complaints and wants to go home today. Objective Vitals Vital Signs Date Time Temp Pulse Resp B/P Pulse Ox O2 Delivery O2 Flow Rate FiO2 11/27/16 07:26 98.1 60 17 148/67 100 11/27/16 06:20 97 11/27/16 04:38 98.7 67 18 128/65 97 11/26/16 23:35 98.0 61 18 120/64 97 11/26/16 20:59 98.7 60 20 121/66 98 11/26/16 16:06 98.0 60 18 106/57 94 11/26/16 11:41 98.3 60 20 103/52 98 11/26/16 08:54 99 Nasal Cannula 2.00 I/O 11/26/16 11/26/16 11/26/16 11/27/16 11/27/16 11/27/16 07:00 15:00 23:00 07:00 15:00 23:00 Intake Total 250 ml 150 ml Output Total 625 ml 1250 ml Balance -625 ml 250 ml -1100 ml Intake Oral 150 ml IV Total 250 ml Output Urine Total 625 ml 1250 ml # Voids 2 Result Diagram: 11/26/16 0612 11/26/16 0612 Imaging Last Impressions Chest X-Ray 11/25/16 1332 Signed Impressions: Service Date/Time: Friday, November 25, 2016 13:54 - CONCLUSION: Re: megaly with no acute cardiac pulmonary disease. There is no evidence of pneumonia. Jaden Aguayo MD Objective Remarks GENERAL: This is a well-nourished, well-developed patient, in no apparent distress. CARDIOVASCULAR: Regular rate and regular rhythm without murmurs, gallops, or rubs. RESPIRATORY: Clear to auscultation. Breath sounds equal bilaterally. No wheezes , rales, or rhonchi. GASTROINTESTINAL: Abdomen soft, non-tender, nondistended. Normal, active bowel sounds MUSCULOSKELETAL: Extremities without clubbing, cyanosis, or edema. NEURO: Alert & Oriented x4 to person, place, time, situation. Moves all ext x4 Procedures none Medications and IVs Current Medications IV Flush (NS Flush) 2 ml UNSCH PRN IVF FLUSH AFTER USING IV ACCESS Last administered on 11/26/16 16:47; Start 11/25/16 at 13:45 Acetaminophen 650 mg 650 mg ONCE ONCE PO Last administered on 11/25/16 15:06 ; Start 11/25/16 at 13:45; Stop 11/25/16 at 13:46; Status DC Vancomycin HCl 1000 mg/Sodium Chloride 250 ml @ 250 mls/hr ONCE STAT IV Last administered on 11/25/16 15:38; Start 11/25/16 at 14:27; Stop 11/25/16 at 15:26 ; Status DC Cefepime HCl 2000 mg/Sodium Chloride 100 ml @ 200 mls/hr ONCE STAT IV Last administered on 11/25/16 16:50; Start 11/25/16 at 14:27; Stop 11/25/16 at 14:56 ; Status DC Ceftriaxone Sodium 1000 mg/ Sodium Chloride 100 ml @ 200 mls/hr Q24H IV Last administered on 11/26/16 21:23; Start 11/25/16 at 21:00 Azithromycin/ Sodium Chloride (Zithromax Inj/ NS 250 ml Inj) 250 ml @ 250 mls/ hr Q24H IV Last administered on 11/26/16 16:45; Start 11/25/16 at 17:00 Albuterol/ Ipratropium (Duoneb Neb) 1 ampule Q6HR NEB PRN NEB SHORTNESS OF BREATH; Start 11/25/16 at 17:15 Acetaminophen (Tylenol) 650 mg Q4H PRN PO FEVER/PAIN 1-10; Start 11/25/16 at 16 :45 Ondansetron HCl 4 mg 4 mg Q8HR PRN IV PUSH NAUSEA; Start 11/25/16 at 16:45 Sodium Chloride (NS 500 ml Inj) 500 ml @ 50 mls/hr Q10H ONCE IV Last administered on 11/25/16 17:41; Start 11/25/16 at 16:45; Stop 11/26/16 at 02:44 ; Status DC Aspirin (Aspirin Chew) 81 mg DAILY CHEW Last administered on 11/26/16 09:16; Start 11/26/16 at 09:00 Metoprolol Tartrate (Lopressor) 12.5 mg BID PO Last administered on 11/26/16 21:22; Start 11/25/16 at 21:00 Famotidine (Pepcid) 10 mg BID PO Last administered on 11/26/16 21:23; Start at 09:00 Enoxaparin Sodium (Lovenox Inj) 30 mg Q24H SQ Last administered on 11/26/16 09 :16; Start 11/26/16 at 09:00 Miscellaneous (Pill Splitter) 1 ea UNSCH PRN OTHER SEE LABEL COMMENTS; Start at 21:00 A/P Assessment and Plan A/P - acute hypoxemic respiratory failure due to pneumonia-improved. switch to po antibiotics upon discharge- blood cultures negative so far. -acute kidney injury with mild hyperkalemia; improved.lasix/ potassium on hold. -CAD/ s/p CABG and pacemaker placement/ hypertension; resumed home meds -DVT prophylaxis with lovenox -consulted PT Discharge Planning dc home today after walk test. f/u with pcp. see med list. d/w the patient and his . case management for [facility]. Ivonne Lock MD Nov 27, 2016 08:54
[2016-11-27] MEDS ORDERED: ZITH250T PO (08:56)
[2016-11-27] MEDS ORDERED: CEFT500T3 PO (08:56)
--- NOTE | 2016-11-27 08:56 | HHI.DCPOC ---
Discharge Care Plan Diagnosis: (1) Pneumonia (2) Hypoxia Your Health Problems Are: Cough Shortness of Breath Goals to Promote Your Health * To prevent worsening of your condition and complications * To maintain your health at the optimal level Directions to Meet Your Goals Take your medications as prescribed Follow your dietary instruction Follow activity as directed Keep your appointments as scheduled Take your immunizations and boosters as scheduled If your symptoms worsen call your PCP, if no PCP go to Urgent Care Center or Emergency Room Smoking is Dangerous to Your Health. Avoid second hand smoke Call the 24-hour hour crisis hotline for domestic abuse at Ivonne Lock MD Nov 27, 2016 08:56
--- NOTE | 2016-11-27 08:57 | HHI.DS ---
Discharge Summary Admission Date Nov 25, 2016 at 18:02 Discharge Date: Nov 27, 2016 Admitting Diagnosis pneumonia (1) Pneumonia ICD Code: J18.9 Diagnosis: Principal (2) Hypoxia ICD Code: R09.02 Diagnosis: Principal Procedures none Brief History - From Admission patient is a 85 y/o male with history of CAD- s/p CABG, hypertension presented to ER with cough. he says that he's been coughing for the past few days. the cough is productive and associated with fever. he denies any sob, chills or night sweats. [facility] and was advised to come to the hospital for further evaluation. he denies any chest pain, abdominal pain, nausea or vomiting. CBC/BMP: 11/26/16 0612 11/26/16 0612 Significant Findings Laboratory Tests Test 11/25/16 11/25/16 11/26/16 13:50 15:30 06:12 Red Blood Count 3.83 MIL/MM3 3.22 MIL/MM3 (4.50-5.90) (4.50-5.90) Hemoglobin 12.6 GM/DL 10.5 GM/DL (13.0-17.0) (13.0-17.0) Hematocrit 37.4 % 31.4 % (39.0-51.0) (39.0-51.0) Neutrophils (%) (Auto) 75.7 % (16.0-70.0) Monocytes (%) (Auto) 13.2 % 17.9 % (0.0-8.0) (0.0-8.0) Lymphocytes # (Auto) 0.5 TH/MM3 0.9 TH/MM3 (1.0-4.8) (1.0-4.8) Ovalocytes 1+ (NORMAL) Sodium Level 134 MEQ/L (136-145) Potassium Level 5.3 MEQ/L (3.5-5.1) Blood Urea Nitrogen 23 MG/DL (7-18) 23 MG/DL (7-18) Creatinine 1.50 MG/DL (0.60-1.30) Estimat Glomerular Filtration 44 ML/MIN (>89) 53 ML/MIN (>89) Rate Random Glucose 107 MG/DL (74-106) Aspartate Amino Transf 51 U/L (15-37) (AST/SGOT) Total Protein 8.9 GM/DL (6.4-8.2) Urine Mucus FEW /lpf (OCC) B-Type Natriuretic Peptide 823 PG/ML (0-100) Platelet Count 102 TH/MM3 (150-450) Calcium Level 8.1 MG/DL (8.5-10.1) Imaging Last Impressions Chest X-Ray 11/25/16 1332 Signed Impressions: Service Date/Time: Friday, November 25, 2016 13:54 - CONCLUSION: Re: megaly with no acute cardiac pulmonary disease. There is no evidence of pneumonia. Jaden Aguayo MD PE at Discharge GENERAL: This is a well-nourished, well-developed patient, in no apparent distress. CARDIOVASCULAR: Regular rate and regular rhythm without murmurs, gallops, or rubs. RESPIRATORY: Clear to auscultation. Breath sounds equal bilaterally. No wheezes , rales, or rhonchi. GASTROINTESTINAL: Abdomen soft, non-tender, nondistended. Normal, active bowel sounds MUSCULOSKELETAL: Extremities without clubbing, cyanosis, or edema. NEURO: Alert & Oriented x4 to person, place, time, situation. Moves all ext x4 Hospital Course - acute hypoxemic respiratory failure due to pneumonia-improved. switch to po antibiotics upon discharge- blood cultures negative so far. -acute kidney injury with mild hyperkalemia; improved.lasix/ potassium on hold. -CAD/ s/p CABG and pacemaker placement/ hypertension; resumed home meds -DVT prophylaxis with lovenox Pt Condition on Discharge: Good Discharge Disposition: Disch w/ Home Health Serv Discharge Time: <= 30 minutes Discharge Instructions DIET: Follow Instructions for: Heart Healthy Diet Activities you can perform: Regular-No Restrictions Follow up Referrals: PCP Follow-up New Medications: Azithromycin (Zithromax) 250 Mg Tab 250 MG PO DAILY Infection #3 Ref 0 TAB Cefuroxime (Ceftin) 500 Mg Tab 500 MG PO BID Infection Days 5 Ref 0 TAB Continued Medications: Aspirin (Aspirin) 81 Mg Chew 81 MG CHEW DAILY Ref 0 TAB Metoprolol Tartrate (Metoprolol Tartrate) 25 Mg Tab 12.5 MG PO BID Ref 0 TAB Ranitidine (Ranitidine) 150 Mg Tab 150 MG PO DAILY Heartburn Management Ref 0 TAB Discontinued Medications: Furosemide (Furosemide) 20 Mg Tab 20 MG PO DAILY Ref 0 TAB Potassium Chloride ER (Potassium Chloride ER) 20 Meq Tab 20 MEQ PO DAILY Electrolyte Replacement Ref 0 TAB Ivonne Lock MD Nov 27, 2016 08:57
--- NOTE | 2016-11-27 08:57 | HHI.FF ---
Face to Face Verification Diagnosis: (1) Hypoxia (2) Pneumonia Physical Therapy Order: Evaluate and Treat Home Health Nursing Order: Medical education Signs/symptoms of disease process Medication education-adverse effect Nursing assessment with vital signs I have seen patient Bryant Clemons on 11/27/16. My clinical findings support the need for the requested home health care services because: Patient has SOB I certify that my clinical findings support that this patient is homebound because: Unsteady gait/balance Ivonne Lock MD Nov 27, 2016 08:56
[2016-11-27] MEDS: ENOXAPARIN SODIUM 30 MG/0.3 ML SYRINGE SQ SCH (09:00)
[2016-11-27] MEDS: METOPROLOL TARTRATE 25 MG TAB PO SCH ×2 (09:02→21:00)
[2016-11-27] MEDS: FAMOTIDINE 20 MG TAB PO SCH ×2 (09:02→21:03)
[2016-11-27] MEDS: ASPIRIN 81 MG CHEW TAB CHEW SCH (09:02)
[2016-11-27 11:45] VITALS: BP 134/68; PULSE 60; RESP 20; TEMP 98; O2SAT 100
[2016-11-27] MEDS ORDERED: OXYGENTANK NAS.CANULA (12:30)
--- NOTE | 2016-11-27 12:31 | HHI.FF ---
Face to Face Verification Diagnosis: (1) Pneumonia (2) Hypoxia Physical Therapy Order: Evaluate and Treat Home Health Nursing Order: Medical education Signs/symptoms of disease process Oxygen administration education Nursing assessment with vital signs I have seen patient Bryant Clemons on 11/27/16. My clinical findings support the need for the requested home health care services because: Patient has SOB I certify that my clinical findings support that this patient is homebound because: Unsteady gait/balance Ivonne Lock MD Nov 27, 2016 12:31
--- NOTE | 2016-11-27 14:57 | RADRPT ---
EXAM DATE/TIME: 11/27/2016 14:33 [place] COMPARISON: No previous studies available for comparison. INDICATIONS : Shortness of breath. RADIATION DOSE: 3.35 CTDIvol (mGy) MEDICAL HISTORY : Cardiovascular disease. Hypertension. Skin cancer. SURGICAL HISTORY : CABG Pacemaker. ENCOUNTER: Initial ACUITY: 1 day PAIN SCALE: 0/10 LOCATION: chest TECHNIQUE: Volumetric scanning of the chest was performed. Using automated exposure control and adjustment of t he mA and/or kV according to patient size, radiation dose was kept as low as reasonably achievable to obtain optimal diagnostic quality images. FINDINGS: LUNGS: Interstitial prominence is seen throughout the lungs particularly within the bases. There is passive atelectasis adjacent to the effusions. A 1.6 x 1.4 cm nodule is seen within the subpleural aspects of the lateral segment of the right lower lobe. PLEURAE: Moderate-sized posterior layering bilateral pleural effusions. MEDIASTINUM: The heart is enlarged. No pericardial effusion. Pronounced coronary artery atherosclerotic calcificat ions. Pulmonary arteries are distended. A few small anterior and superior mediastinal lymph nodes are observed without bulky adenopathy. The largest lymph node is within the aorticopulmonary window suraj uring 1.9 x 1.1 cm. AXILLAE: No adenopathy. Left-sided pacing device is noted. MUSCULOSKELETAL: Median sternotomy wires. MISCELLANEOUS: The visualized upper abdominal organs demonstrate no acute abnormality. CONCLUSION: 1. Cardiomegaly with pulmonary vascular engorgement and bilateral pleural effusions with interstitial prominence suggesting interstitial pulmonary edema. 2. 1.6 x 1.4 cm right lower lobe pulmonary nodule. A short-term followup CT of the thorax in 3 months is suggested to document stability. Alternatively, an outpatient PET CT could be utilized to further evaluate. 3. Small lymph nodes within the mediastinum likely reactive. 4. Pronounced coronary artery atherosclerotic calcifications. Stephan Yepez Jr., MD on November 27, 2016 at 14:50 Board Certified Radiologist. This report was verified electronically.
[2016-11-27 15:56] VITALS: BP 135/62; PULSE 60; RESP 20; TEMP 98; O2SAT 93
[2016-11-27] MEDS: AZITHROMYCIN INJ 500 MG in SODIUM CHLOR 0.9% 250 ML INJ 250 ML IV SCH (16:17)
[2016-11-27 20:13] VITALS: BP 137/65; PULSE 78; RESP 21; TEMP 98.7; O2SAT 99
[2016-11-27] MEDS: cefTRIAXone INJ 1,000 MG in SODIUM CHLORIDE 0.9% INJ 100 ML IV SCH (21:04)
[2016-11-28] VITALS: BP 133/74; PULSE 77; RESP 18; TEMP 98.7; O2SAT 97
[2016-11-28 08:08] VITALS: BP 141/65; PULSE 60; RESP 16; TEMP 98.4; O2SAT 93
[2016-11-28] MEDS: ASPIRIN 81 MG CHEW TAB CHEW SCH (09:59)
[2016-11-28] MEDS: ENOXAPARIN SODIUM 30 MG/0.3 ML SYRINGE SQ SCH (09:59)
[2016-11-28] MEDS: FAMOTIDINE 20 MG TAB PO SCH (09:59)
[2016-11-28] MEDS: METOPROLOL TARTRATE 25 MG TAB PO SCH (09:59)
--- NOTE | 2016-11-28 10:59 | HHI.PR ---
Subjective Remarks in no distress. denies sob or chest pain. afebrile. wants to go home today. Objective Vitals Vital Signs Date Time Temp Pulse Resp B/P Pulse Ox O2 Delivery O2 Flow Rate FiO2 11/28/16 08:08 98.4 60 16 141/65 93 11/28/16 00:00 98.7 77 18 133/74 97 11/27/16 20:13 98.7 78 21 137/65 99 11/27/16 16:15 2.00 11/27/16 15:56 98.0 60 20 135/62 93 11/27/16 15:54 11/27/16 11:45 98.0 60 20 134/68 100 I/O 11/27/16 11/27/16 11/27/16 11/28/16 11/28/16 11/28/16 07:00 15:00 23:00 07:00 15:00 23:00 Intake Total 150 ml Output Total 1250 ml 200 ml Balance -1100 ml -200 ml Intake Oral 150 ml Output Urine Total 1250 ml 200 ml # Voids 2 Result Diagram: 11/26/16 0612 11/26/16 0612 Imaging Last Impressions Chest CT 11/27/16 0000 Signed Impressions: Service Date/Time: November 14:33 - CONCLUSION: 1. Cardiomegaly with pulmonary vascular engorgement and bilateral pleural effusions with interstitial prominence suggesting interstitial pulmonary edema. 2. 1.6 x 1.4 cm right lower lobe pulmonary nodule. A short-term followup CT of the thorax in 3 months is suggested to document stability. Alternatively, an outpatient PET CT could be utilized to further evaluate. 3. Small lymph nodes within the mediastinum likely reactive. 4. Pronounced coronary artery atherosclerotic calcifications. Stephan Yepez Jr., MD Chest X-Ray 11/25/16 1332 Signed Impressions: Service Date/Time: Friday, November 25, 2016 13:54 - CONCLUSION: Re: megaly with no acute cardiac pulmonary disease. There is no evidence of pneumonia. Jaden Aguayo MD Objective Remarks GENERAL: This is a well-nourished, well-developed patient, in no apparent distress. CARDIOVASCULAR: Regular rate and regular rhythm without murmurs, gallops, or rubs. RESPIRATORY: Clear to auscultation. Breath sounds equal bilaterally. No wheezes , rales, or rhonchi. GASTROINTESTINAL: Abdomen soft, non-tender, nondistended. Normal, active bowel sounds MUSCULOSKELETAL: Extremities without clubbing, cyanosis, or edema. NEURO: Alert & Oriented x4 to person, place, time, situation. Moves all ext x4 Procedures none Medications and IVs Current Medications IV Flush (NS Flush) 2 ml UNSCH PRN IVF FLUSH AFTER USING IV ACCESS Last administered on 11/26/16 16:47; Start 11/25/16 at 13:45 Acetaminophen 650 mg 650 mg ONCE ONCE PO Last administered on 11/25/16 15:06 ; Start 11/25/16 at 13:45; Stop 11/25/16 at 13:46; Status DC Vancomycin HCl 1000 mg/Sodium Chloride 250 ml @ 250 mls/hr ONCE STAT IV Last administered on 11/25/16 15:38; Start 11/25/16 at 14:27; Stop 11/25/16 at 15:26 ; Status DC Cefepime HCl 2000 mg/Sodium Chloride 100 ml @ 200 mls/hr ONCE STAT IV Last administered on 11/25/16 16:50; Start 11/25/16 at 14:27; Stop 11/25/16 at 14:56 ; Status DC Ceftriaxone Sodium 1000 mg/ Sodium Chloride 100 ml @ 200 mls/hr Q24H IV Last administered on 11/27/16 21:04; Start 11/25/16 at 21:00 Azithromycin/ Sodium Chloride (Zithromax Inj/ NS 250 ml Inj) 250 ml @ 250 mls/ hr Q24H IV Last administered on 11/27/16 16:17; Start 11/25/16 at 17:00 Albuterol/ Ipratropium (Duoneb Neb) 1 ampule Q6HR NEB PRN NEB SHORTNESS OF BREATH; Start 11/25/16 at 17:15 Acetaminophen (Tylenol) 650 mg Q4H PRN PO FEVER/PAIN 1-10; Start 11/25/16 at 16 :45 Ondansetron HCl 4 mg 4 mg Q8HR PRN IV PUSH NAUSEA; Start 11/25/16 at 16:45 Sodium Chloride (NS 500 ml Inj) 500 ml @ 50 mls/hr Q10H ONCE IV Last administered on 11/25/16 17:41; Start 11/25/16 at 16:45; Stop 11/26/16 at 02:44 ; Status DC Aspirin (Aspirin Chew) 81 mg DAILY CHEW Last administered on 11/28/16 09:59; Start 11/26/16 at 09:00 Metoprolol Tartrate (Lopressor) 12.5 mg BID PO Last administered on 11/28/16 09:59; Start 11/25/16 at 21:00 Famotidine (Pepcid) 10 mg BID PO Last administered on 11/28/16 09:59; Start at 09:00 Enoxaparin Sodium (Lovenox Inj) 30 mg Q24H SQ Last administered on 11/28/16 09 :59; Start 11/26/16 at 09:00 Miscellaneous (Pill Splitter) 1 ea UNSCH PRN OTHER SEE LABEL COMMENTS; Start at 21:00 A/P Assessment and Plan A/P - acute hypoxemic respiratory failure due to pneumonia-improved. switch to po antibiotics upon discharge- blood cultures negative so far. -acute kidney injury with mild hyperkalemia; will lower the dose of lasix/ potassium- -pulmonary nodule- f/u as outpatient- the patient's is aware of the finding. -CAD/ s/p CABG and pacemaker placement/ hypertension; resumed home med. -DVT prophylaxis with lovenox -consulted PT Discharge Planning dc home when home oxygen is available. f/u with pcp. see med list. d/w the patient and his . case management for [facility]. Ivonne Lock MD Nov 28, 2016 10:59
[2016-11-28] MEDS ORDERED: FURO20TA PO (11:04)
[2016-11-28] MEDS ORDERED: POTA-163 PO (11:04)
[2016-11-28 11:29] VITALS: BP 126/75; PULSE 60; RESP 16; TEMP 98.2; O2SAT 95
== END 2016-11-28 18:53 | disposition home health service (06) | DRG 193 ==
LOC: NEPC 12:43 → NEDA 18:02 → NEDH 22:02 → NEPHCDU 11-26 00:03
PROVIDERS: ADMIT Internal Medicine; ATTEND Internal Medicine
DX: J18.9 Pneumonia, unspecified organism (principal); J96.01 Acute respiratory failure with hypoxia; N17.9 Acute kidney failure, unspecified; I25.10 Atherosclerotic heart disease of native coronary artery without angina pectoris; Z95.1 Presence of aortocoronary bypass graft; Z95.0 Presence of cardiac pacemaker; I10 Essential (primary) hypertension; E87.5 Hyperkalemia; I50.9 Heart failure, unspecified; R91.1 Solitary pulmonary nodule; Z87.01 Personal history of pneumonia (recurrent); E78.5 Hyperlipidemia, unspecified; H91.8X3 Other specified hearing loss, bilateral; Z95.5 Presence of coronary angioplasty implant and graft
CPT/HCPCS: 51702; 71010; 71250; 80048; 80053; 81001; 82550; 83605; 83880; 84484; 85025; 87040; 87449; 87804; 93005; 94620; 96365; 96367; J0456; J0692; J0696; J1650; J3370; J7040; J7050